=== PATIENT | male | born 1965 | race Caucasian/White ===

== ENCOUNTER 2020-07-04 14:16 | Emergency (ER) | payer MEDICAID ==
[~2020-07-04] VITALS: Ht 165.1 cm; Wt 68.0 kg
[2020-07-04 14:24] VITALS: BP 110/95
[2020-07-04] MEDS ORDERED: KETOROLAC 30 MG/ML VIAL IM ONE (15:15)
--- NOTE | 2020-07-04 15:18 | NUR ---
applied meme wrap to left ankle
[2020-07-04 15:36] VITALS: BP 107/86
== END 2020-07-04 15:35 | disposition home or self-care (01) ==
LOC: MED 14:16
DX: S90.32XA Contusion of left foot, initial encounter (principal); Z88.1 Allergy status to other antibiotic agents; W20.8XXA Other cause of strike by thrown, projected or falling object, initial encounter; Y93.89 Activity, other specified; Y92.89 Other specified places as the place of occurrence of the external cause; Y99.8 Other external cause status
CPT/HCPCS: 73630; 96372; 99283; J1885